=== PATIENT | female | born 1945 | race Caucasian/White ===

== ENCOUNTER 2020-06-14 11:45 | Emergency (ER) | payer MEDICARE, SELFPAY ==
[2020-06-14] VITALS (17 sets, daily range): BP systolic 119–148; BP diastolic 63–87; PULSE 66–90; RESP 13–20; TEMP 36.9; O2SAT 97–100
--- NOTE | ~2020-06-14 | XR_ITS ---
EXAMINATION: XR chest 2V DATE: 06/14/2020 12:28 INDICATION: Chest pain. TECHNIQUE: Frontal and lateral views of the chest were obtained. COMPARISON: Chest single view 12/19/2007 FINDINGS: Calcified right lung nodules and calcified right hilar lymph nodes are consistent with old granulomatous disease. No pleural effusion or pneumothorax. The heart size is normal. There are surgi sola clips in left axilla. IMPRESSION: 1. No acute cardiopulmonary disease. Reviewed, dictated and finalized at location A.
--- NOTE | 2020-06-14 11:55 | ECG_ITS ---
Measurements Intervals [place] Rate: 80 P: 37 KS: 143 QRS: -30 QRSD: 85 T: 19 QT: 377 QTc: 437 Interpretive Statements SINUS RHYTHM LOW QRS VOLTAGE IN PRECORDIAL LEADS BORDERLINE R WAVE PROGRESSION, ANTERIOR LEADS BORDERLINE T WAVE ABNORMALITY- INFERIOR LEADS BASELINE ARTIFACT- I, III, AVR BORDERLINE ECG Electronically Signed On 06-14-2020 13:29:31 CDT by Brian Valerio D.O.
--- NOTE | 2020-06-14 12:06 | ED.SYNCOPE ---
HPI - Syncope General Chief Complaint: Syncope Stated Complaint: i had the sx of heart attack a couple days ago Time Seen by Provider: 06/14/20 11:59 History of Present Illness HPI narrative: Patient presents to the ED feeling fine, but had an episode 4 days ago with chest pain, lightheadedness, syncope,. After she fainted she vomited. When she had the chest pain it radiated to both shoulders both arms and her jaw. Her hands went numb. She had chills and sweats when she woke up from the syncope. It was not witnessed. She has not been sick since. She had some heat exposure in the last couple days. Related Data Home Medications Medication Instructions Recorded Confirmed alendronate 70 mg PO WEEKLY 06/14/20 diphenhydramine HCl [Benadryl] 25 mg PO HS 06/14/20 magnesium 06/14/20 Allergies Allergy/AdvReac Type Severity Reaction Status Date / Time No Known Allergies Allergy Unknown Verified 06/14/20 11:53 Review of Systems Review of Systems: Narrative: CONSTITUTIONAL: Denies fever, chills, or sweats now. EYES: Denies visual changes, redness, or discharge. ENT: Denies rhinorrhea, congestion, sore throat, or otalgia. CARDIOVASCULAR: She had chest pain and syncope 4 days ago. RESPIRATORY: Denies cough or dyspnea. GASTROINTESTINAL: Denies abdominal pain, nausea, vomiting, or diarrhea now. GENITOURINARY: Denies dysuria or hematuria. SKIN: Denies rash or itching. MUSCULOSKELETAL: Denies back pain, joint pain, or myalgia. NEUROLOGIC: Denies headache, numbness, or weakness. PSYCHIATRIC: Denies anxiety or depression. All systems reviewed & are unremarkable except as noted in HPI and below PMFSH Past Medical History Medical History Benign tumor Breast cancer Diverticulosis Dyslipidemia Elevated LDL cholesterol level Osteopenia Recurrent urinary tract infection Surgical History Surgical History History of appendectomy History of eye surgery History of partial mastectomy History of tubal ligation Social History Social History Smoking status: Never smoker Second hand tobacco smoke exposure: No Alcohol intake: never Substance use: never Substance use type: does not use Gender identity (if verbalized by the patient): Female Exam Narrative: Exam Narrative: GENERAL: Well-appearing, well-nourished, and in no acute distress. Marta lady. HEAD: Normocephalic, atraumatic. EYES: PERRLA and EOMI. ENT: Nares clear, no rhinorrhea or epistaxis. Mucous membranes moist. NECK: Supple. CHEST: Clear to auscultation. No respiratory distress. HEART: Regular rate and rhythm. No murmur heard. Normal peripheral pulses. ABDOMEN: Soft, nontender, nondistended, normal active bowel sounds. EXTREMITIES: Normal range of motion. No edema. SKIN: Warm, dry, no rash. NEURO: No focal deficits. Alert and oriented x3. PSYCH: Normal mood and affect. Course Reevaluation(s) Reevaluation #1: Went in to tell the patient about all her good test results. Told her I was sorry that I could not figure out why she was sick last week. She is just relieved to know that there was no damage. Date: 06/14/20 Time: 13:31 Vital Signs Vital signs: Vital Signs Temperature 98.4 F 06/14/20 11:50 Pulse Rate 90 06/14/20 11:50 Respiratory Rate 16 06/14/20 11:50 Blood Pressure 148/63 H 06/14/20 11:50 Pulse Oximetry 99 06/14/20 11:50 Temperature 98.4 F 06/14/20 11:50 Pulse Rate 69 06/14/20 12:46 Respiratory Rate 18 06/14/20 12:46 Blood Pressure 119/67 06/14/20 12:46 Pulse Oximetry 100 06/14/20 12:46 MDM - Syncope Medical Records Attestation: I reviewed the patient's medical records. Lab Data Attestation: I reviewed the patient's lab results. Result diagrams: 06/14/20 12:02 06/14/20 12:57 Labs: Lab Results 06/14/20 072
[2020-06-14 12:19] LABS: Basophils Percent Auto 0.2 % (0.2-1.2); Eosinophils Absolute Auto 0.1 K/mm3 (0-0.3); Eosinophils Percent Auto 1.5 % (0-4.4); Hematocrit 39.5 % (37.0-47.0); Hemoglobin 12.2 g/dL (12.0-15.0); Immature Granulocyte Absolute 0.03 K/mm3 (0.00-0.031); Immature Granulocyte Percent A 0.5 % (0-0.5); Lymphocytes Absolute Auto 1.48 K/mm3 (0.9-3.2); Lymphocytes Percent Auto 22.9 % (18.3-44.2); Mean Corpuscular HGB Conc 30.9 g/dl (32-36); Mean Corpuscular Hemoglobin 27.5 pg (26-34); Mean Corpuscular Volume 89.2 fl (80-100); Mean Platelet Volume 10.6 fl (7.4-10.4); Monocytes Absolute Auto 0.5 K/mm3 (0.1-0.6); Monocytes Percent Auto 7.3 % (2.6-8.5); Neutrophils Absolute Auto 4.4 K/mm3 (1.3-6.7); Neutrophils Percent Auto 67.6 % (45.5-73.1); Platelet Count Result 267 k/mm3 (150-375); Red Blood Count 4.43 M/mm3 (4.2-5.4); White Blood Count 6.5 K/mm3 (4.5-10.0)
[2020-06-14 12:35] LABS: Prothrombin Time 12.9 Seconds (11.1-14.7)
[2020-06-14 12:36] LABS: Partial Thromboplastin Time 28.1 SECONDS (22.3-36.8)
[2020-06-14 13:19] LABS: Anion Gap 8.3 mmol/L (7-16); Blood Urea Nitrogen 20 mg/dL (7-17); Calcium 8.5 mg/dL (8.4-10.2); Carbon Dioxide 28 mmol/L (22-30); Chloride 104 mmol/L (98-107); Estimated CRCL calculation 41 ml/min; Estimated Glomerular Filt Rate 54; Glucose 97 mg/dL (65-105); Potassium 4.3 mmol/L (3.4-5.0); Sodium 136 mmol/L (137-145)
[2020-06-14 13:30] LABS: Troponin I < 0.012 ng/mL (0.000-0.034)
== END 2020-06-14 13:42 | disposition home or self-care (01) ==
LOC: ANHED 12:19
PROVIDERS: Emergency Provider Emergency Medicine; PCP Family Medicine
DX: T67.9XXA Effect of heat and light, unspecified, initial encounter (principal); R55 Syncope and collapse; R07.89 Other chest pain; Z85.3 Personal history of malignant neoplasm of breast; E78.5 Hyperlipidemia, unspecified; M85.80 Other specified disorders of bone density and structure, unspecified site; Z87.440 Personal history of urinary (tract) infections; Z90.10 Acquired absence of unspecified breast and nipple; R94.31 Abnormal electrocardiogram [ECG] [EKG]
CPT/HCPCS: 36415; 71046; 80048; 84484; 85025; 85610; 85730; 93005; 99284

== ENCOUNTER → 2020-11-26 07:46 | Outpatient (CLI) | payer MEDICARE, SELFPAY ==
--- NOTE | ~2020-11-26 | MM_ITS ---
EXAMINATION: MM diagnostic mami BI w bonnie HISTORY: Personal history of left breast cancer TECHNIQUE: Craniocaudal, mediolateral, and mediolateral oblique 3-D tomosynthesis images of the breas ts were performed and synthetic 2-D images were generated. CAD analysis was submitted and interpreted . COMPARISON: 11/10/2019, 11/07/2018, 11/06/2017 FINDINGS: There is stable architectural distortion in the upper outer quadrant of the left breast sit e of prior lumpectomy. Left axillary surgical clips are noted. There is no evidence of suspicious mas s, calcification, or architectural distortion in either breast to suggest malignancy. There has been no suspicious interval change. IMPRESSION: 1. No mammographic evidence of malignancy. 2. Recommend routine screening mammography in one year. BI-RADS Category 2: Benign finding(s). Reviewed, dictated and finalized at location A. 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
== END ==
PROVIDERS: PCP Physician Assistant; Visit Provider Internal Medicine Medical Oncology
DX: C50.411 Malignant neoplasm of upper-outer quadrant of right female breast (principal); Z17.0 Estrogen receptor positive status [ER+]
CPT/HCPCS: 77062; 77066; G0279

== ENCOUNTER → 2021-12-02 10:10 | Outpatient (CLI) | payer MEDICARE, SELFPAY ==
--- NOTE | ~2021-12-02 | DEXA_ITS ---
Bone Density Report Name: GEORGE CUBA Age: 76 Sex: Female Ethnicity: Anahi Date of : 1945 Indication: postmenopausal osteoporosis; height loss; Referring Provider: Yahaira, Kirill Proctor Study: Bone densitometry was performed. Exam Date: December 02, 2021 Accession number: [id number] Bone Density: Region BMD T-score Z-score Classification AP Spine (L1-L4) 0.764 -2.6 -0.1 Osteoporosis Femoral Neck (Left) 0.744 -0.9 1.2 Normal Total Hip (Left) 0.819 -1.0 0.9 Normal Femoral Neck (Right) 0.861 0.1 2.3 Normal Total Hip (Right) 0.861 -0.7 1.2 Normal Total Hip Mean 0.840 -0.9 1.1 Normal World Health Organization criteria for BMD impression classify patients as: Normal (T-score at or above -1.0), Osteopenia (T-score between -1.0 and -2.5), or Osteoporosis (T-score at or below -2.5). 10-year Fracture Risk: FRAX not reported because: Some T-score for Spine Total or Hip Total or Femoral Neck at or below -2.5 Previous Exams: Region Exam Age BMD T-score BMD Change BMD Change Date g/cm2 vs Baseline vs Previous AP Spine(L1-L4) 12/02/2021 76 0.764 -2.6 -0.011 -0.011 11/10/2019 73 0.775 -2.5 Total Hip(Left) 12/02/2021 76 0.819 -1.0 -0.009 -0.009 11/10/2019 73 0.828 -0.9 Total Hip(Right) 12/02/2021 76 0.861 -0.7 -0.021 -0.021 11/10/2019 73 0.881 -0.5 *Denotes significance at 95% confidence level, LSC for AP Spine = 0.022 g/cm2, LSC for Total Hip = 0.027 g/cm2 Clinical Information Provided by Patient: Has used the following medications: Boniva (i.e. ibandronate), Vitamin D, Calcium Patient maximum height was 63.3 Menopause Age: 49 Drinks caffeinated beverages Onset of menses at age 12 Number of children 1 Impression: The patient has osteoporosis, based on the Total Spine T-score. No significant bone loss was observed. Discussion: INCREASED RISK OF FRACTURE. BONE DENSITY IS UNDESIRABLY LOW AT ONE OR MORE SKELETAL SITES, CONSISTENT WITH POSTMENOPAUSAL OSTEOPOROSIS. This patient's lowest T-score meets the World Health Organization's (WHO) criteria for osteoporosis at one or more sites (T-score -2.5 or below). In untreated patients, the risk of osteoporotic fracture increases approximately two-fold for each 1.0 SD decrease in T-score. Low bone density is not the only risk factor for fracture; also consider factors such as patient's age, frailty or poor health, risk of falling, risk of inj
--- NOTE | ~2021-12-02 | MM_ITS ---
EXAMINATION: MM screening mami BI w bonnie HISTORY: Screening TECHNIQUE: Craniocaudal and mediolateral oblique 3-D tomosynthesis images were obtained and synthetic 2-D images were generated. CAD analysis was submitted and interpreted. COMPARISON: Comparison to multiple prior studies sequentially, with oldest reviewed study dated 05/2015. BREAST PARENCHYMAL COMPOSITION: Breast composed of scattered areas of fibroglandular density FINDINGS: The left breast is stable without new mass, calcifications or architectural distortion to s uggest malignancy. There are developing clustered indeterminate right breast calcifications in the up per outer quadrant. IMPRESSION: 1. Developing clustered calcifications of the right breast in the upper outer quadrant. 2. Magnification views are recommended. BI-RADS Category 0: Incomplete: Needs additional imaging evaluation. Reviewed, dictated and finalized at location A. 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 Developing clustered calcifications of the right breast in the upper outer q uadrant. 2. Magnification views are recommended. BI-RADS Category 0: Incomplete: Needs additional imaging evaluation.
== END ==
PROVIDERS: Visit Provider Internal Medicine Medical Oncology
DX: Z12.31 Encounter for screening mammogram for malignant neoplasm of breast (principal); Z78.0 Asymptomatic menopausal state; M81.0 Age-related osteoporosis without current pathological fracture; R92.8 Other abnormal and inconclusive findings on diagnostic imaging of breast
CPT/HCPCS: 77063; 77067; 77080

== ENCOUNTER 2021-12-16 12:26 | Outpatient (CLI) | payer MEDICARE, SELFPAY ==
--- NOTE | ~2021-12-16 | MM_ITS ---
EXAMINATION: MM diagnostic mami RT w bonnie HISTORY: Right breast calcifications on screening mammogram TECHNIQUE: Magnification views of the right breast were performed and synthetic 2-D images were gener ated. CAD analysis was submitted and interpreted. COMPARISON: 12/02/2021, 11/26/2020, 11/10/2019, 11/07/2018 FINDINGS: There are grouped coarse heterogeneous calcifications posterior third of the upper outer qu adrant breast at the 11:00 location 8 cm from the nipple. No associated mass or architectural distort ion are identified. IMPRESSION: 1. Indeterminate right breast calcifications. 2. Stereotactic biopsy is recommended. BI-RADS category 4, suspicious findings. Reviewed, dictated and finalized at location A. D WASTE FACILITY OPERATOR
== END 2021-12-16 12:27 | disposition home or self-care (01) ==
PROVIDERS: PCP Family Medicine; Visit Provider Internal Medicine Medical Oncology
DX: R92.1 Mammographic calcification found on diagnostic imaging of breast (principal); R92.8 Other abnormal and inconclusive findings on diagnostic imaging of breast
CPT/HCPCS: 77061; 77065; G0279

== ENCOUNTER 2021-12-27 11:30 | Outpatient (CLI) | payer MEDICARE, SELFPAY ==
--- NOTE | ~2021-12-27 | MM_ITS ---
MM stereotactic bx RT, MM post biopsy diagnostic RT, MM stereotactic specimen RT EXAMINATION: MM ster eotactic bx RT, MM post biopsy diagnostic RT, MM stereotactic specimen RT DATE: Zan Sellers M.D. INDICATION: Abnormal calcifications in the right breast. Stereotactic core biopsy is requested evalu ate for malignancy.] TECHNIQUE AND FINDINGS: The risks and potential benefits of the procedure were discussed with the patient and written informe d consent was obtained. The patient was placed in the prone position clustered at the table with the right breast in craniocaudal compression, and the area of interest was localized and targeted utiliz ing digital imaging with stereotaxis. After sterile preparation of the skin, 1% lidocaine was utilized for local anesthesia at the skin pun cture site and 1% lidocaine with epinephrine was utilized for deeper local anesthesia/is about the bi opsy site. A 9G [place] vacuum assisted biopsy needle was advanced to the level of the calcification o f interest from a cephalad approach utilizing stereotactic guidance and a total of 10 tissue core bio psies were obtained. A specimen radiograph demonstrates that the calcifications of interest are included within the tissue cores. A tissue marker clip was then placed at the biopsy site. The needle was removed and hemosta sis was achieved. The patient tolerated the procedure well and there is no evidence of significant i mmediate complication. The patient was given verbal as well as written postprocedural instructions p rior to discharge from the department. Tissue cores were submitted to surgical pathology for histolo gic analysis. A 2-view right unilateral digital mammogram was obtained post procedure and this demonstrates that th e tissue marker clip is in expected position. Tissue marker located in the upper outer quadrant of th e right breast posteriorly.] IMPRESSION: 1. Successful stereotactic biopsy of calcifications in the upper outer quadrant of the right breast, followed by tissue marker clip placement. Please refer to pathology report for histologic analysis. Reviewed, dictated and finalized at location A. GRATION PROJECT MANAGER IMPRESSION: 1. Successful stereotactic biopsy of calcifications in the upper outer quadran t of the right breast, followed by tissue marker clip placement. Please refer to pathology report for histologic analysis. IMPRESSION: 1. Successful stereotactic biopsy of calcifications in the upper outer quadran t of the right breast, followed by tissue marker clip placement. Please refer to pathology report for histologic analysis.
== END 2021-12-27 11:31 | disposition home or self-care (01) ==
PROVIDERS: PCP Family Medicine; Visit Provider Internal Medicine Medical Oncology
DX: R92.1 Mammographic calcification found on diagnostic imaging of breast (principal); R92.8 Other abnormal and inconclusive findings on diagnostic imaging of breast
CPT/HCPCS: 19081; 77065; 88305; A4648

== ENCOUNTER 2022-11-01 10:32 | Outpatient (CLI) | payer MEDICARE, SELFPAY ==
[2022-11-01 19:36] LABS: Alanine Aminotransferase 17 U/L (6-35); Albumin Level 4.1 g/dL (3.5-5.1); Alkaline Phosphatase 51 U/L (38-126); Anion Gap 5 mmol/L (8-16); Aspartate Amino Transferase 29 U/L (14-36); Bilirubin,Total 0.3 mg/dL (0.2-1.3); Blood Urea Nitrogen 35 mg/dL (7-17); Calcium 8.7 mg/dL (8.4-10.2); Carbon Dioxide 29 mmol/L (22-30); Chloride 103 mmol/L (98-107); Estimated Glomerular Filt Rate 54; Glucose 83 mg/dL (65-110); Potassium 4.4 mmol/L (3.4-5.0); Sodium 137 mmol/L (137-145)
== END 2022-11-01 10:33 | disposition home or self-care (01) ==
LOC: ANHGOSHLAB 10:39
PROVIDERS: PCP Family Medicine; Visit Provider Family Medicine
DX: E78.5 Hyperlipidemia, unspecified (principal); L50.8 Other urticaria; N18.30 Chronic kidney disease, stage 3 unspecified
CPT/HCPCS: 36415; 80053

== ENCOUNTER → 2022-12-25 10:25 | Outpatient (CLI) | payer MEDICARE, SELFPAY ==
--- NOTE | ~2022-12-25 | MM_ITS ---
EXAMINATION: MM diagnostic mami BI w bonnie HISTORY: History of left breast cancer TECHNIQUE: ML, MLO and CC 3-D tomosynthesis images of both breasts and left rotated lateral craniocau viral 3-D Tomosynthesis images were performed and synthetic 2-D images were generated. CAD analysis was submitted and interpreted. COMPARISON: 2diagnostic right mammogram 12/02/2021, 11/26/2020, 11/10/2019bilateralmammogram examinations BREAST PARENCHYMAL COMPOSITION: There are scattered areas of fibroglandular density. FINDINGS: Postoperative change from left partial mastectomy is again noted. There is a biopsy marker in the upper outer right breast; history of prior benign right breast biopsy. No interval suspicious mass or new architectural distortion or new retraction of either breast is ad dent. Occasional benign calcifications. IMPRESSION: 1. Status post left partial mastectomy for breast cancer. Benign findings 2. Routine annual mammographic screening is recommended BI-RADS Category 2: Benign finding(s). Reviewed, dictated and finalized at location A. E ORTHOPAEDIC
== END ==
PROVIDERS: PCP Family Medicine; Visit Provider Internal Medicine Medical Oncology
DX: C50.411 Malignant neoplasm of upper-outer quadrant of right female breast (principal); Z17.0 Estrogen receptor positive status [ER+]
CPT/HCPCS: 77062; 77066; G0279

== ENCOUNTER 2023-04-11 10:15 | Outpatient (CLI) | payer MEDICARE, SELFPAY ==
[2023-04-11 13:10] LABS: Basophils Percent Auto 0.2 % (0.2-1.2); Eosinophils Absolute Auto 0.1 K/mm3 (0-0.3); Eosinophils Percent Auto 1.7 % (0-4.4); Hematocrit 41.3 % (37.0-47.0); Immature Granulocyte Absolute 0.01 K/mm3 (0.00-0.031); Immature Granulocyte Percent A 0.2 % (0-0.5); Lymphocytes Absolute Auto 1.28 K/mm3 (0.9-3.2); Lymphocytes Percent Auto 27.8 % (18.3-44.2); Mean Corpuscular HGB Conc 29.1 g/dl (32-36); Mean Corpuscular Hemoglobin 26.9 pg (26-34); Mean Corpuscular Volume 92.6 fl (80-100); Mean Platelet Volume 10.9 fl (7.4-10.4); Monocytes Absolute Auto 0.5 K/mm3 (0.1-0.6); Monocytes Percent Auto 10.6 % (2.6-8.5); Neutrophils Absolute Auto 2.7 K/mm3 (1.3-6.7); Neutrophils Percent Auto 59.5 % (45.5-73.1); Platelet Count Result 207 k/mm3 (150-375); Red Blood Count 4.46 M/mm3 (4.2-5.4); Red Cell Distribution Width 13.3 % (11.5-14.5); White Blood Count 4.6 K/mm3 (4.5-10.0)
[2023-04-11 13:17] LABS: Alanine Aminotransferase 22 U/L (6-35); Albumin Level 4.2 g/dL (3.5-5.1); Alkaline Phosphatase 33 U/L (38-126); Anion Gap 3 mmol/L (8-16); Aspartate Amino Transferase 34 U/L (14-36); Bilirubin,Total 0.4 mg/dL (0.2-1.3); Blood Urea Nitrogen 31 mg/dL (7-17); Calcium 8.7 mg/dL (8.4-10.2); Carbon Dioxide 31 mmol/L (22-30); Chloride 106 mmol/L (98-107); Cholesterol 173 mg/dL (0-200); Estimated Glomerular Filt Rate > 60; Glucose 94 mg/dL (65-110); HDL Direct 70 mg/dL; Potassium 4.3 mmol/L (3.4-5.0); Sodium 140 mmol/L (137-145); Triglycerides 58 mg/dL (<150)
[2023-04-11 13:28] LABS: LDL Cholesterol Direct 84 mg/dL
[2023-04-11 13:49] LABS: Burr Cells 1+ (NORMAL); Platelet Estimate Adequate (Adequate); Schistocytes None Seen (NORMAL)
[2023-04-11 13:58] LABS: Vitamin D 25 Hydroxy 41.5 ng/mL
[2023-04-11 14:07] LABS: Vitamin B12 > 1000.0 pg/mL (239-931)
[2023-04-11 14:12] LABS: Thyroid Stimulating Hormone Reflex < 0.015 uIU/mL (0.465-4.68)
[2023-04-11 19:36] LABS: Free T4 Free Thyroxine Reflex 0.97 ng/dL (0.78-2.19)
[2023-04-11 20:15] LABS: Total Triiodothyronine (T3) 1.25 NG/ML (0.97-1.69)
== END 2023-04-11 10:16 | disposition home or self-care (01) ==
LOC: ANHGOSHLAB 10:16
PROVIDERS: PCP Family Medicine; Visit Provider Family Medicine
DX: N18.31 Chronic kidney disease, stage 3a (principal); E78.5 Hyperlipidemia, unspecified; E53.8 Deficiency of other specified B group vitamins; L50.8 Other urticaria; Z13.29 Encounter for screening for other suspected endocrine disorder; E55.9 Vitamin D deficiency, unspecified
CPT/HCPCS: 36415; 80053; 80061; 82306; 82607; 84439; 84443; 84480; 85025

== ENCOUNTER 2023-05-31 08:50 | Outpatient (CLI) | payer MEDICARE, SELFPAY | END 2023-05-31 08:51 | disposition home or self-care (01) | LOC: ANHGOSHLAB 08:51 | PROVIDERS: PCP Family Medicine; Visit Provider Family Medicine | DX: R79.89 Other specified abnormal findings of blood chemistry (principal); E78.5 Hyperlipidemia, unspecified | CPT/HCPCS: 36415; 84443 ==

== ENCOUNTER 2024-02-29 13:10 | Outpatient (CLI) | payer MEDICARE, SELFPAY ==
--- NOTE | ~2024-02-29 | DEXA_ITS ---
Bone Density Report Name: GEORGE CUBA Age: 78 Sex: Female Ethnicity: Anahi Date of : 1945 Indication: postmenopausal osteoporosis; height loss; end stage renal disease; Referring Provider: Yahaira, Kirill Proctor Study: Bone densitometry was performed. Exam Date: February 29, 2024 Accession number: [id number] Bone Density: Region BMD T-score Z-score Classification AP Spine (L1-L4) 0.775 -2.5 0.2 Osteoporosis Femoral Neck (Left) 0.769 -0.7 1.6 Normal Total Hip (Left) 0.815 -1.0 1.0 Normal Femoral Neck (Right) 0.837 -0.1 2.2 Normal Total Hip (Right) 0.841 -0.8 1.2 Normal Total Hip Mean 0.828 -0.9 1.1 Normal World Health Organization criteria for BMD impression classify patients as: Normal (T-score at or above -1.0), Osteopenia (T-score between -1.0 and -2.5), or Osteoporosis (T-score at or below -2.5). 10-year Fracture Risk: FRAX not reported because: Some T-score for Spine Total or Hip Total or Femoral Neck at or below -2.5 Previous Exams: Region Exam Age BMD T-score BMD Change BMD Change Date g/cm2 vs Baseline vs Previous AP Spine(L1-L4) 02/29/2024 78 0.775 -2.5 0.000 0.011 12/02/2021 76 0.764 -2.6 -0.011 -0.011 11/10/2019 73 0.775 -2.5 Total Hip(Left) 02/29/2024 78 0.815 -1.0 -0.013 -0.004 12/02/2021 76 0.819 -1.0 -0.009 -0.009 11/10/2019 73 0.828 -0.9 Total Hip(Right) 02/29/2024 78 0.841 -0.8 -0.040* -0.020 12/02/2021 76 0.861 -0.7 -0.021 -0.021 11/10/2019 73 0.881 -0.5 *Denotes significance at 95% confidence level, LSC for AP Spine = 0.022 g/cm2, LSC for Total Hip = 0.027 g/cm2 Clinical Information Provided by Patient: Has used the following medications: Vitamin D, Calcium Has the following medical conditions: End stage renal disease Patient maximum height was 63.3 Menopause Age: 49 Drinks caffeinated beverages Onset of menses at age 12 Number of children 1 Impression: The patient has osteoporosis, based on the Total Spine T-score. No significant bone loss was observed. Discussion: INCREASED RISK OF FRACTURE. BONE DENSITY IS UNDESIRABLY LOW AT ONE OR MORE SKELETAL SITES, CONSISTENT WITH POSTMENOPAUSAL OSTEOPOROSIS. This patient's lowest T-score meets the World Health Organization's (WHO) criteria for osteoporosis at one or more sites (T-score -2.5 or below). In untreated patients, the risk
--- NOTE | ~2024-02-29 | MM_ITS ---
EXAMINATION: MM screening mami BI w bonnie HISTORY: Screening TECHNIQUE: Craniocaudal and mediolateral oblique 3-D tomosynthesis images were obtained and synthetic 2-D images were generated. CAD analysis was submitted and interpreted. COMPARISON: Comparison to multiple prior studies sequentially, with oldest reviewed study dated 06/2021. BREAST PARENCHYMAL COMPOSITION: Not dense: There are scattered areas of fibroglandular density. FINDINGS: Stable postoperative changes in the upper outer quadrant of the left breast, consistent wit h lumpectomy for breast cancer with radiation therapy There is no evidence of suspicious mass, calcif ication, or architectural distortion to suggest malignancy in either breast. There has been no suspic ious interval change. IMPRESSION: 1. No mammographic evidence of malignancy. 2. Recommend routine screening mammography in one year. BI-RADS Category 2: Benign finding(s). Reviewed, dictated and finalized at location A.
== END 2024-02-29 13:11 ==
PROVIDERS: PCP Internal Medicine Medical Oncology; Visit Provider Internal Medicine Medical Oncology
DX: Z12.31 Encounter for screening mammogram for malignant neoplasm of breast (principal); M81.0 Age-related osteoporosis without current pathological fracture; Z78.0 Asymptomatic menopausal state; C50.411 Malignant neoplasm of upper-outer quadrant of right female breast; Z17.0 Estrogen receptor positive status [ER+]
CPT/HCPCS: 77063; 77067; 77080

== ENCOUNTER 2024-06-02 10:22 | Emergency (ER) | payer MEDICARE, SELFPAY ==
[2024-06-02 10:33] VITALS: BP 123/51; PULSE 72; RESP 18; TEMP 36.7; O2SAT 99
--- NOTE | 2024-06-02 10:43 | ED.WOUNDLAC ---
HPI - Wound/Laceration General Stated Complaint: Cat Bite Time Seen by Provider: 06/02/24 10:43 Source: patient Mode of arrival: ambulatory Limitations: no limitations History of Present Illness HPI narrative: 78-year-old female with complaint redness, swelling, pain to dorsal aspect right hand. States that she was bit by her cat last night. Afebrile. Tetanus up-to-date. No active bleeding. All Systems reviewed and negative except as noted. Related Data Home Medications Medication Instructions Recorded Confirmed diphenhydramine HCl 25 mg capsule 25 mg PO HS 06/14/20 06/02/24 (Benadryl) biotin 1 mg capsule 1 mg PO DAILY 11/25/20 06/02/24 calcium carbonate 600 mg-vitamin 1 cap PO DAILY 11/25/20 06/02/24 D3 12.5 mcg (500 unit) capsule (Calcium 600 with Vitamin D3) magnesium aspart,citrate,oxide 200 mg PO DAILY 10/06/21 06/02/24 (Triple Magnesium Complex) vitamin B complex (B 1 tablet PO DAILY 04/06/22 06/02/24 Complex-Vitamin B12 tablet) Allergies Allergy/AdvReac Type Severity Reaction Status Date / Time No Known Allergies Allergy Unknown Verified 06/02/24 10:50 Review of Systems Review of Systems: CONSTITUTIONAL: Denies fever, chills, or sweats. EYES: Denies visual changes, redness, or discharge. ENT: Denies rhinorrhea, congestion, sore throat, or otalgia. CARDIOVASCULAR: Denies chest pain, palpitations, or edema. RESPIRATORY: Denies cough or dyspnea. GASTROINTESTINAL: Denies abdominal pain, nausea, vomiting, or diarrhea. GENITOURINARY: Denies dysuria or hematuria. SKIN: Denies rash or itching. reports redness, swelling and warmth to dorsal aspect right hand. MUSCULOSKELETAL: Denies back pain, joint pain, or myalgia. NEUROLOGIC: Denies headache, numbness, or weakness. PSYCHIATRIC: Denies anxiety or depression. All other systems reviewed are negative, except as documented in HPI. 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 History of lumpectomy of left breast 2007 History of tubal ligation 1976 Family History Family History Grandparent Cerebrovascular accident Mother Cerebrovascular accident Father Lung cancer Social History Social History Smoking status: Never smoker Second hand tobacco smoke exposure: No Alcohol intake: never Substance use: never Substance use type: does not use Lack of Transportation: No Lack of Food: Never True Current Housing: I Have Housing Concerned About Future Housing: No Difficulty Paying Gas/Electric Bills: No Difficulty Paying for Meds: No Currently Unemployed: No Education: High School Diploma/GED Difficulty w/ Childcare or Family Care: No Living arrangements: with family Occupation/Education: retired Gender identity (if verbalized by the patient): Female Sexual Orientation (if Verbalized by the Patient): Straight or Heterosexual Agree to blood products: Yes Comments At time of signature, agree with nursing past medical, surgical, social and family history. There is no relevant family history pertinent to the presenting complaint. Exam Narrative: GENERAL: This is a well-nourished, well-developed patient, in no apparent distress. HEAD: normocephalic, atraumatic. EYES: PERRL. Sclera clear/white. Vision is grossly intact. EARS: External ears normal NOSE: External nose normal NECK: Neck supple, non-tender without lymphadenopathy, masses or thyromegaly. CARDIOVASCULAR: Regular rate and rhythm without murmurs, gallops, or rubs. RES
== END 2024-06-02 10:53 | disposition home or self-care (01) ==
PROVIDERS: Emergency Provider Nurse Practitioner Family; PCP Family Medicine
DX: S61.411A Laceration without foreign body of right hand, initial encounter (principal); L08.9 Local infection of the skin and subcutaneous tissue, unspecified; W55.01XA Bitten by cat, initial encounter; N18.30 Chronic kidney disease, stage 3 unspecified; E78.5 Hyperlipidemia, unspecified; M81.0 Age-related osteoporosis without current pathological fracture; Z85.3 Personal history of malignant neoplasm of breast
CPT/HCPCS: 99213; G0463

== ENCOUNTER 2024-08-17 09:17 | Emergency (ER) | payer MEDICARE, SELFPAY ==
[2024-08-17 09:37] VITALS: BP 128/56; PULSE 83; RESP 18; TEMP 36.7; O2SAT 100
--- NOTE | 2024-08-17 09:55 | ED.FEMALEGU ---
HPI - Female Genitourinary General Chief complaint: Urogenital-Female Stated complaint: UTI Time Seen by Provider: 08/17/24 09:50 Source: patient and RN notes reviewed Mode of arrival: ambulatory Limitations: no limitations History of Present Illness HPI Narrative: Patient presents today complaining of urinary frequency, decreased output, dysuria, chills, suprapubic pain since yesterday morning. She took a dose of azo yesterday. Last dose was last night. Reports history of frequent UTIs. Related Data Home Medications Medication Instructions Recorded Confirmed diphenhydramine HCl 25 mg capsule 25 mg PO HS 06/14/20 08/17/24 (Benadryl) biotin 1 mg capsule 1 mg PO DAILY 11/25/20 08/17/24 calcium carbonate 600 mg-vitamin 1 cap PO DAILY 11/25/20 08/17/24 D3 12.5 mcg (500 unit) capsule (Calcium 600 with Vitamin D3) magnesium aspart,citrate,oxide 200 mg PO DAILY 10/06/21 08/17/24 (Triple Magnesium Complex) vitamin B complex (B 1 tablet PO DAILY 04/06/22 08/17/24 Complex-Vitamin B12 tablet) Allergies Allergy/AdvReac Type Severity Reaction Status Date / Time No Known Allergies Allergy Unknown Verified 08/17/24 09:45 Review of Systems Review of Systems: CONSTITUTIONAL: Denies body aches, fever, or sweats.+ chills EYES: Denies visual changes, redness, or discharge. ENT: Denies rhinorrhea, congestion, sore throat, or otalgia. CARDIOVASCULAR: Denies chest pain, palpitations, or edema. RESPIRATORY: Denies cough or dyspnea. GASTROINTESTINAL: Denies abdominal pain, nausea, vomiting, or diarrhea. GENITOURINARY: + frequency, dysuria, suprapubic pain, decreased urine output SKIN: Denies rash, itching, or wounds. MUSCULOSKELETAL: Denies back pain, joint pain, or myalgia. NEUROLOGIC: Denies headache, numbness, tingling, or weakness. PSYCH: Denies depression or anxiety. 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 History of lumpectomy of left breast 2007 History of tubal ligation 1976 Family History Family History Grandparent Cerebrovascular accident Mother Cerebrovascular accident Father Lung cancer Social History Social History Smoking status: Never smoker Second hand tobacco smoke exposure: No Alcohol intake: never Substance use: never Substance use type: does not use Lack of Transportation: No Lack of Food: Never True Current Housing: I Have Housing Concerned About Future Housing: No Difficulty Paying Gas/Electric Bills: No Difficulty Paying for Meds: No Currently Unemployed: No Education: High School Diploma/GED Difficulty w/ Childcare or Family Care: No Living arrangements: with family Occupation/Education: retired Gender identity (if verbalized by the patient): Female Sexual Orientation (if Verbalized by the Patient): Straight or Heterosexual Agree to blood products: Yes Comments At time of signature, I have reviewed and agree with nursing past medical, surgical, social and family history unless otherwise noted. Please see nursing chart for further information. There is no relevant family history pertinent to the presenting complaint Exam Narrative: GENERAL: Well-appearing, well-nourished, and in no acute distress. HEAD: Normocephalic, atraumatic. EYES: EOMI. No redness or drainage. Conjunctivae normal. ENT: Mucous membranes pink and moist. NECK: Normal AROM. CHEST: No respiratory distress. Clear to auscultation. HEART: Regular rate and rhyth
[2024-08-18 14:30] LABS: EDUAAPPEAR Clear; EDUABILI Negative (Negative); EDUABLOOD Trace (Negative); EDUACOLOR1 Yellow; EDUAGLUCOSE Negative (Negative); EDUAKETONE Negative (Negative); EDUALEUKO 1+ (Negative); EDUANITRATE Negative (Negative); EDUAPROTEIN Negative (Negative); EDUASPGRAVITY 1.025; EDUAUROBILI 0.2
== END 2024-08-17 10:05 | disposition home or self-care (01) ==
PROVIDERS: Emergency Provider Nurse Practitioner; PCP Family Medicine
DX: N30.01 Acute cystitis with hematuria (principal); B96.20 Unspecified Escherichia coli [E. coli] as the cause of diseases classified elsewhere; N18.30 Chronic kidney disease, stage 3 unspecified; E78.5 Hyperlipidemia, unspecified; M81.0 Age-related osteoporosis without current pathological fracture; Z85.3 Personal history of malignant neoplasm of breast
CPT/HCPCS: 81003; 87077; 87086; 87088; 87186; 99213; G0463

== ENCOUNTER 2024-11-26 10:24 | Outpatient (CLI) | payer MEDICARE, SELFPAY ==
[2024-11-26 12:41] LABS: Basophils Percent Auto 0.2 % (0.2-1.2); Eosinophils Percent Auto 0.5 % (0-4.4); Hematocrit 40.1 % (37.0-47.0); Hemoglobin 11.6 g/dL (12.0-15.0); Immature Granulocyte Absolute 0.01 K/mm3 (0.00-0.031); Immature Granulocyte Percent A 0.2 % (0-0.5); Lymphocytes Absolute Auto 1.45 K/mm3 (0.9-3.2); Lymphocytes Percent Auto 26.3 % (18.3-44.2); Mean Corpuscular HGB Conc 28.9 g/dl (32-36); Mean Corpuscular Hemoglobin 26.6 pg (26-34); Mean Platelet Volume 11.2 fl (7.4-10.4); Monocytes Absolute Auto 0.6 K/mm3 (0.1-0.6); Neutrophils Absolute Auto 3.5 K/mm3 (1.3-6.7); Neutrophils Percent Auto 62.8 % (45.5-73.1); Nucleated Red Blood Cells Perc 0.4 % (0.0-0.2); Platelet Count Result 247 k/mm3 (150-375); Red Blood Count 4.36 M/mm3 (4.2-5.4); Red Cell Distribution Width 13.1 % (11.5-14.5); White Blood Count 5.5 K/mm3 (4.5-10.0)
[2024-11-26 13:04] LABS: Alanine Aminotransferase 21 U/L (6-35); Albumin Level 3.8 g/dL (3.5-5.1); Alkaline Phosphatase 46 U/L (38-126); Anion Gap 2 mmol/L (4-12); Aspartate Amino Transferase 33 U/L (14-36); Bilirubin,Total 0.5 mg/dL (0.2-1.3); Blood Urea Nitrogen 27 mg/dL (7-17); Calcium 9.1 mg/dL (8.4-10.2); Carbon Dioxide 28 mmol/L (22-30); Chloride 109 mmol/L (98-107); Cholesterol 156 mg/dL (0-200); Estimated Glomerular Filt Rate 60; Glucose 86 mg/dL (65-110); HDL Direct 50 mg/dL; Potassium 4.3 mmol/L (3.4-5.0); Sodium 139 mmol/L (137-145); Triglycerides 72 mg/dL (<150)
[2024-11-26 13:14] LABS: Hypochromasia 2+; Ovalocytes 1+; Platelet Estimate Adequate (Adequate); Schistocytes None Seen
[2024-11-26 13:16] LABS: LDL Cholesterol Direct 75 mg/dL
[2024-11-26 13:24] LABS: Vitamin D 25 Hydroxy 84.5 ng/mL
[2024-11-26 14:01] LABS: Vitamin B12 > 1000.0 pg/mL (239-931)
[2024-11-26 21:57] LABS: Hemoglobin A1C 5.6 % (<5.7)
== END 2024-11-26 10:25 | disposition home or self-care (01) ==
PROVIDERS: PCP Family Medicine; Visit Provider Family Medicine
DX: E78.5 Hyperlipidemia, unspecified (principal); Z79.899 Other long term (current) drug therapy; E55.9 Vitamin D deficiency, unspecified; R73.9 Hyperglycemia, unspecified; N18.30 Chronic kidney disease, stage 3 unspecified; E53.8 Deficiency of other specified B group vitamins
CPT/HCPCS: 36415; 80053; 80061; 82306; 82607; 83036; 84443; 85025

== ENCOUNTER 2025-02-27 12:48 | Emergency (ER) | payer MEDICARE, SELFPAY ==
--- NOTE | ~2025-02-27 | CT_ITS ---
Non-contrast Head CT History: Status post fall Technique: Axial non-contrast imaging of the brain was performed. Dose reduction technique was used on this scan by utilizing automated exposure control and iterative reconstruction technique. The dose -length product (DLP) was 605.33 mGy-cm. Findings: There is no evidence of intracranial hemorrhage, mass lesion, or acute infarct. Brain par enchyma appears normal. The ventricles and subarachnoid spaces are normal in size. The calvarium ap pears normal. The visualized paranasal sinuses and mastoid air cells are clear. Impression: No significant abnormality seen. Reviewed, dictated and finalized at location . Impression: No significant abnormality seen.
--- NOTE | ~2025-02-27 | CT_ITS ---
Noncontrast CT scan of the cervical spine Technique: Multiple contiguous axial [address] images of the cervical spine were obtained and rec onstructed in 2D sagittal and coronal planes on the acquisition scanner. Dose reduction technique was used on this scan by utilizing automated exposure control, adjustment of the mA and/or kV according to patient size. The dose-length product (DLP) was 113.20 mGy-cm. Clinical History: Pain Findings: No fractures or dislocations. There is moderate to advanced degenerative disc narrowing at C6-C7. There are scattered areas of facet joint degenerative change. There is mild bilateral neural foraminal narrowing at C6-C7. No prevertebral soft tissue swelling. Impression: No fracture or subluxation of the cervical spine. Degenerative change, as above. Reviewed, dictated and finalized at [facility]. Impression: No fracture or subluxation of the cervical spine. Degenerative change, as above.
[2025-02-27 12:50] VITALS: BP 142/58; PULSE 81; RESP 18; TEMP 35.7; O2SAT 99
--- OUTSIDE RECORDS SUMMARY | 2025-02-27 12:52 | XMS_ITS | Encounter Summary ---
Author Organization [employer] Address [address] [place] [address] Care Team Providers Care Police Chief Deputy Name Role Phone Derrek Adorno MD Primary Care Provider Encounter Details Date Type Department Care Team (Latest Contact Info) Description 06/10/2008 Outpatient Historical [facility] Javon Gallagher MD [address] [address] Malignant Neoplasm of Other Specified Sites of Female Breast (CMS/HCC) Social History Tobacco Use Types Packs/Day Years Used Date Smoking Tobacco: Never Assessed Comments Unknown Sex and Gender Information Value Date Recorded Sex Assigned at Not on file Legal Sex Female 5:30 AM TEXTILE SUPERVISOR Gender Identity Not on file Sexual Orientation Not on file documented as of this encounter Plan of Treatment Not on file documented as of this encounter Visit Diagnoses Diagnosis Malignant neoplasm of other specified sites of female breast documented in this encounter Care Teams Police Chief Deputy Relationship Specialty Start Date End Date Derrek Adorno MD [address] [place] [address] PCP - General 09/28/09 documented as of this encounter
--- OUTSIDE RECORDS SUMMARY | 2025-02-27 12:52 | XMS_ITS | Encounter Summary ---
Author Organization [facility] Address [address] [place] [address] Care Team Providers Care Inseam Leveler Name Role Phone Derrek Adorno MD Primary Care Provider [phone] Encounter Details Date Type Department Care Team (Latest Contact Info) Description 12/07/2007 Outpatient Historical [facility] Javon Gallagher MD [address] [address] Malignant Neoplasm of Breast (Female), Unspecified Site (CMS/HCC) Social History Tobacco Use Types Packs/Day Years Used Date Smoking Tobacco: Never Assessed Comments Unknown Sex and Gender Information Value Date Recorded Sex Assigned at Not on file Legal Sex Female 5:30 AM HYDROGRAPHICAL TECHNICAL OFFICER Gender Identity Not on file Sexual Orientation Not on file documented as of this encounter Plan of Treatment Not on file documented as of this encounter Visit Diagnoses Diagnosis Malignant neoplasm of breast (female), unspecified site documented in this encounter Care Teams Inseam Leveler Relationship Specialty Start Date End Date Derrek Adorno MD [address] [place] [id number] PCP - General 09/28/09 documented as of this encounter
--- OUTSIDE RECORDS SUMMARY | 2025-02-27 12:52 | XMS_ITS | Encounter Summary ---
Author Organization [facility] Address [address] [place] [address] Care Team Providers Care Seafood Specialist Name Role Phone Brian Booker MD Primary Care Provider [phone] Encounter Details Date Type Department Care Team (Latest Contact Info) Description 01/06/2009 Outpatient Historical [facility] Aris Diaz MD [address] [place] [id number] Malignant Neoplasm of Other Specified Sites of Female Breast (CMS/HCC) Social History Tobacco Use Types Packs/Day Years Used Date Smoking Tobacco: Never Assessed Comments Unknown Sex and Gender Information Value Date Recorded Sex Assigned at Not on file Legal Sex Female 5:30 AM BRAND SALES MANAGER Gender Identity Not on file Sexual Orientation Not on file documented as of this encounter Plan of Treatment Not on file documented as of this encounter Procedures Procedure Name Priority Date/Time Associated Diagnosis Comments XR RIBS UNILATERAL LEFT W PA CHEST Timed Study 01/06/2009 10:53 AM BRAND SALES MANAGER documented in this encounter Results * XR RIBS UNILATERAL LEFT W PA CHEST (01/06/2009 10:53 AM BRAND SALES MANAGER) Anatomical Region Laterality Modality Chest Other 01/06/2009 10:5 3 AM BRAND SALES MANAGER Narrative 01/06/2009 12:08 PM BRAND SALES MANAGER [address] [address] Admit Date: 01/06/2009 GEORGE CUBA Sex: F Admit Prov: ARIS DIAZ Date: 1945 Primary Care Prov: BRIAN BOOKER CMRN: [id number] [facility] [address] [place] [address] IMAGING SERVICES Ordering Prov: N/A Accession Number: [id number] Interpretation Examination: Chest with left ribs. 4 views Clinical History: Pain. Findings: Chest examination fails to demonstrate pleural, pulmonary, or mediastinal abnormality. Heart size is normal. There is no evidence of left rib fracture. Vascular catheter extends to the proximal superior vena cava. Impression: Normal chest with left ribs. . Dictated by: Kael GIRON 01/06/2009 12:07 Electronically signed by: Kael GIRON 01/06/2009 12:07 Procedure Note Armond Giron MD - 01/06/2009 [facility] [address] [place], [place] [address] Admit Date: 01/06/2009 GEORGE CUBA Sex: F Admit Prov: ARIS DIAZ Date: 1945 Primary Care Prov: BRIAN BOOKER CMRN: [id number] Room: [facility] [place] SSN: [address] [place] [address] IMAGING SERVICES Ordering Prov: N/A Interpretation Examination: Chest with left ribs. 4 views Clinical History: Pain. Findings: Chest examination fails to demonstrate pleural, pulmonary,or mediastinal abnormality. Heart size is normal. There is no evidenceof left rib fracture. Vascular catheter extends to the proximal superior venacava. Impression: Normal chest with left ribs. . Dictated by: Kael GIRON 01/06/2009 12:07 Electronically signed by: Kael GIRON 01/06/2009 12:07 Aris Diaz MD DIAGNOSTIC IMAGING ORDERABLE S Final Result documented in this encounter Visit Diagnoses Diagnosis Malignant neoplasm of other specified sites of female breast documented in this encounter Care Teams Seafood Specialist Relationship Specialty Start Date End Date Brian Booker MD [address] [place] [address] PCP - General 09/28/09 documented as of this encounter
--- OUTSIDE RECORDS SUMMARY | 2025-02-27 12:52 | XMS_ITS | Clinical Summary ---
Author Organization [facility] Address [address] [place] [address] Phone Care Team Providers Care Physician Liaison Name Role Phone Derrek Adorno MD Primary Care Provider [phone] Allergies No known active allergies Medications letrozole (FEMARA) 2.5 mg Oral Tab Take 1 Tab by mouth daily. Active Family History Medical History Relation Name Comments Lung Cancer Father Ovarian Cancer Maternal Aunt Cancer Maternal Cousin Relation Name Status Comments Father Maternal Aunt Maternal Cousin Social History Tobacco Use Types Packs/Day Years Used Date Smoking Tobacco: Never Alcohol Use Standard Drinks/Week Comments Yes 0 (1 standard drink = 0.6 oz pur e alcohol) social Comments Unknown Sex and Gender Information Value Date Recorded Sex Assigned at Not on file Legal Sex Female 5:30 AM PROJECT LEAD Gender Identity Not on file Sexual Orientation Not on file Occupation Industry Job Start Date Job End Date Not on file Not on file Not on file Not on file Last Filed Vital Signs Vital Sign Reading Time Taken Comments Blood Pressure 135/78 12/04/2012 10:14 AM PROJECT LEAD Pulse 73 12/04/2012 10:14 AM PROJECT LEAD Temperature 36.6 C (97.8 F) 12/04/2012 10:14 AM PROJECT LEAD Respiratory Rate 18 12/04/2012 10:14 AM PROJECT LEAD Oxygen Saturation 99% 12/04/2012 10:14 AM PROJECT LEAD Inhaled Oxygen Concentration - - Weight 62.1 kg (137 lb) 12/04/2012 10:16 AM PROJECT LEAD Height 167.6 cm (5' 6 ) 12/04/2012 10:16 AM PROJECT LEAD Body Mass Index 22.11 12/04/2012 10:16 AM PROJECT LEAD Plan of Treatment Health Maintenance Due Date Last Done Comments DTAP/TDAP/TD VACCINES (1 - Tdap) 1963 PNEUMOCOCCAL VACCINE 50+ YEARS (1 of 1 - PCV) 11/30/18 95 ZOSTER VACCINE (1 of 2) 1994 OSTEOPOROSIS SCREENING 2009 RSV VACCINE (60+ or ) (1 - 1-dose 75+ series) 2019 INFLUENZA VACCINE (#1) 2024 Insurance MEDICARE PART A AND B Care Teams Physician Liaison Relationship Specialty Start Date End Date Derrek Adorno MD [address] [place] [address] PCP - General 09/28/09
--- OUTSIDE RECORDS SUMMARY | 2025-02-27 12:52 | XMS_ITS | Encounter Summary ---
Author Organization [employer] Address [address] [place] [address] Care Team Providers Care Gravel Wheeler Name Role Phone Derrek Adorno MD Primary Care Provider [phone] Encounter Details Date Type Department Care Team (Latest Contact Info) Description 01/06/2009 Outpatient Historical [facility] Javon Gallagher MD [address] [address] Malignant Neoplasm of Other Specified Sites of Female Breast (CMS/HCC) Social History Tobacco Use Types Packs/Day Years Used Date Smoking Tobacco: Never Assessed Comments Unknown Sex and Gender Information Value Date Recorded Sex Assigned at Not on file Legal Sex Female 5:30 AM DIRECTOR DIGITAL STRATEGY Gender Identity Not on file Sexual Orientation Not on file documented as of this encounter Plan of Treatment Not on file documented as of this encounter Visit Diagnoses Diagnosis Malignant neoplasm of other specified sites of female breast documented in this encounter Care Teams Gravel Wheeler Relationship Specialty Start Date End Date Derrek Adorno MD [address] [place] [address] PCP - General 09/28/09 documented as of this encounter
--- OUTSIDE RECORDS SUMMARY | 2025-02-27 12:52 | XMS_ITS | Encounter Summary ---
Author Organization [employer] Address [address] [place] [address] Care Team Providers Care Water Main Pipe Layer Name Role Phone Derrek Adorno MD Primary Care Provider [phone] Encounter Details Date Type Department Care Team (Latest Contact Info) Description 11/05/2007 Outpatient Historical [facility] Javon Gallagher MD [address] [address] Malignant Neoplasm of Breast (Female), Unspecified Site (CMS/HCC) Social History Tobacco Use Types Packs/Day Years Used Date Smoking Tobacco: Never Assessed Comments Unknown Sex and Gender Information Value Date Recorded Sex Assigned at Not on file Legal Sex Female 5:30 AM HOME HEALTH MANAGER Gender Identity Not on file Sexual Orientation Not on file documented as of this encounter Plan of Treatment Not on file documented as of this encounter Visit Diagnoses Diagnosis Malignant neoplasm of breast (female), unspecified site documented in this encounter Care Teams Water Main Pipe Layer Relationship Specialty Start Date End Date Derrek Adorno MD [address] [place] [phone] PCP - General 09/28/09 documented as of this encounter
--- OUTSIDE RECORDS SUMMARY | 2025-02-27 12:52 | XMS_ITS | Clinical Summary ---
Author Organization [facility] Address [address] [facility] [place] [address] Care Team Providers Care Parking Lot Chauffeur Name Role Phone Roman Barnhart MD Primary Care Provider Source Comments [facility],non-owned Affiliates and Associated Physician Practices is amultiple site organization consisting of ambulatory clinics and hospital sitesin [place], [place], [place] and [place]. This disclosure is being madepursuant to the Care Everywhere program and may not contain all information available regarding this patient. Last updated 18.[facility] Allergies No known active allergies Medications * Be aware that medications may not be up to date on this document. Alwaysverify current medications with the patient. Medication Sig Dispensed Refills Start Date End Date Status DiphenhydrAMINE HCl (BENADRYL ALLERGY PO) Active Family History Medical History Relation Name Comments Cancer - Lung Father Relation Name Status Comments Father Mother Social History Tobacco Use Types Packs/Day Years Used Date Smoking Tobacco: Never Smokeless Tobacco: Never Alcohol Use Standard Drinks/Week Comments No 0 (1 standard drink = 0.6 oz pur e alcohol) Sex and Gender Information Value Date Recorded Sex Assigned at Not on file Gender Identity Not on file Sexual Orientation Not on file Last Filed Vital Signs Vital Sign Reading Time Taken Comments Blood Pressure 120/70 08/15/2018 9:07 AM CDT Pulse 68 08/15/2018 9:07 AM CDT Temperature 36.7 C (98.1 F) 08/15/2018 9:07 AM CDT Respiratory Rate 16 08/15/2018 9:07 AM CDT Oxygen Saturation 98% 08/15/2018 9:07 AM CDT Inhaled Oxygen Concentration - - Weight 65.3 kg (144 lb) 08/15/2018 9:07 AM CDT Height 160 cm (5' 3 ) 08/15/2018 9:07 AM CDT Body Mass Index 25.51 08/15/2018 9:07 AM CDT Plan of Treatment Health Maintenance Due Date Last Done Comments BONE DENSITY TESTING 1945 MEDICARE AWV 12 MONTHS 1945 DTAP/TDAP/TD VACCINES (1 - Tdap) 1963 PNEUMOCOCCAL VACCINE 50+ (1 of 1 - PCV) 1994 ZOSTER VACCINE (1 of 2) 1994 Respiratory Syncytial Virus (RSV) Vaccine Pt: or over 60 yrs (1 - 1-dose 75+ series) 2019 COVID-19 VACCINE ( - 2023-2 5 season) 2024 DEPRESSION SCREENING 11/19/2024 INFLUENZA VACCINE (Season Ended) 2025 HEPATITIS B VACCINE Aged Out No longe r eligible based on patient's age to complete this topic HIB VACCINE Aged Out No longer eligi ble based on patient's age to complete this topic HPV VACCINE Aged Out No longer eligi ble based on patient's age to complete this topic MENINGOCOCCAL (Group B) VACC INE SHARED DECISION-MAKING Aged Out No longer eligibl e based on patient's age to complete this topic MENINGOCOCCAL GROUPS A/C/Y/W VACCINE Aged Out No longer eligible b ased on patient's age to complete this topic Care Teams Parking Lot Chauffeur Relationship Specialty Start Date End Date Roman Barnhart MD [address] [place] [address] PCP - General 12/30/21
--- OUTSIDE RECORDS SUMMARY | 2025-02-27 12:52 | XMS_ITS | Encounter Summary ---
Author Organization [employer] Address [address] [place] [address] Care Team Providers Care Drywall Stripper Name Role Phone Derrek Adorno MD Primary Care Provider [phone] Encounter Details Date Type Department Care Team (Latest Contact Info) Description 10/04/2007 Outpatient Historical [facility] Conversion, History Javon Gallagher MD [address] [address] Malignant Neoplasm of Breast (Female), Unspecified Site (CMS/HCC) Social History Tobacco Use Types Packs/Day Years Used Date Smoking Tobacco: Never Assessed Comments Unknown Sex and Gender Information Value Date Recorded Sex Assigned at Not on file Legal Sex Female 5:30 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
--- OUTSIDE RECORDS SUMMARY | 2025-02-27 12:52 | XMS_ITS | Continuity of Care Document ---
Author Organization [facility] Address [address] [place] [address] [address] [place] [address] Phone Care Team Providers Care Ekg/Ecg Technician Name Role Phone Shanice iTmmons Unavailable Unavailable Advance Directives Directive Yes / No Effective Date File Name No Information Encounters Encounter Description Practice Location Reason(s) For Visit Diagnoses Date Provider Providers Copied on Encounter [facility], [address], [place], [place], [id number], [place] tel:[phone] [facility] No Information [address] Shanelle Prasad. [address] , [address], [place], [address], [place]. tel:[phone] Family History Family Member Type Diagnosis Age At Onset No Information Payers Payer name Insurance type Covered libertarian ID Authoriza tion(s) No Information Social History Type Description Quantity Date Captured Comments Sex Female Smoking Status No Information Chief Complaint And Reason For Visit No Information Reason For Referral Reason For Referral No Information History Of Present Illness Encounter Date Complaint History Of Prese nt Illness No Information Functional Status Date Functional Assessmen t No Information Instructions Date Instruction Additional Infor mation No Information Assessments Type Assessment Date No Information Patient Care Teams Name Effective Dates (start - stop) Status Members No Information
--- OUTSIDE RECORDS SUMMARY | 2025-02-27 12:53 | XMS_ITS | Clinical Summary ---
Author Organization [facility] Address [address] [facility] [address] [place] [address] Phone Care Team Providers Care Name Plate Stamping Machine Operator Name Role Phone Roman Barnhart MD Primary Care Provider Kirill Syed DO Unavailable [phone] Allergies No known active allergies Medications cholecalcifer ol (VITAMIN D-3) 2,000 unit capsule 05/04/2017Vitamin D3, po solid 2000 unit CapsulePOdailyPatient will get OTCContinue 017 Active diphenhydrAMI NE (BENADRYL) elixir 12.5 mg/5 mL Take by mouth every 6 (six) hours as needed for itching. Active magnesium gluconate 200 mg tablet Take 4 tablets (800 mg total) by mouth 2 (two) times a day Active biotin 5 mg tablet Take by mouth Active cyanocobalami n, vitamin B-12, 5,000 mcg capsule Take 5,000 mcg by mouth daily Active latanoprost (XALATAN) 0.005 % ophthalmic solution INSTILL 1 DROP INTO EACH EYE NIGHTLY AT BEDTIME 024 Active rosuvastatin (CRESTOR) 5 mg tablet Take 1 tablet (5 mg total) by mouth daily 025 Active Active Problems Problem Noted Date Diagnosed Date Protein-calorie malnutrition, unspecified severi ty 11/28/2024 Sensorineural hearing loss (SNHL) of both ears 1 12/10/2021 Malignant neoplasm of upper- outer quadrant of right breast in female, estrogen receptor positive 05/23/2018 Cancer Staging:Clinical stage from 09/21/2009:Stage IA(cT1c, cN0(sn), cM0, G2, ER: Positive, PA: Positive, HER2: Positive) - Signed by Kirill Syed DO on 06/01/2018 Immunizations Immunization Administration Dates Next Due Pfizer SARS-CoV-2 Monovalent Vaccination (12+ Yrs) PURPLE 03/21/2021,01/20/2021 Pneumococcal Polysaccharide PPV23 05/19/2016 Tdap 11/24/2019 ZOSTER Recombinant 05/19/2016 Surgical History Surgery Date Site/Laterality Comments APPENDECTOMY EYE SURGERY BREAST SURGERY Medical History Medical History Date Comments Seasonal allergies Breast cancer (HCC) Glaucoma Family History Medical History Relation Name Comments Cancer Father Relation Name Status Comments Father Social History Tobacco Use Types Packs/Day Years Used Date Smoking Tobacco: Never Smokeless Tobacco: Never AUDIT-C Answer Date Recorded Q1: How often do you have a drink containing alcohol? Never 11/28/2024 Q2: How many drinks containi ng alcohol do you have on a typical day when you are drinking? Patient does not drink Q3: How often do you have si x or more drinks on one occasion? Never 11/28/2024 Comments Unknown Sex and Gender Information Value Date Recorded Sex Assigned at Not on file Legal Sex Female 11:44 AM MEMBER CERTIFICATION MANAGER Gender Identity Not on file Sexual Orientation Not on file Obstetrics History Last Filed Vital Signs Vital Sign Reading Time Taken Comments Blood Pressure 113/63 11/28/2024 10:02 AM MEMBER CERTIFICATION MANAGER Pulse 84 11/28/2024 10:02 AM MEMBER CERTIFICATION MANAGER Temperature 36.6 C (97.8 F) 11/28/2024 10:02 AM MEMBER CERTIFICATION MANAGER Respiratory Rate 18 11/28/2024 10:0 2 AM MEMBER CERTIFICATION MANAGER Oxygen Saturation 97% 11/28/2024 10: 02 AM MEMBER CERTIFICATION MANAGER Inhaled Oxygen Concentration - - Weight 52.6 kg (115 lb 15.4 oz) 025 10:02 AM MEMBER CERTIFICATION MANAGER no shoes Height 157.5 cm (5' 2 ) 09/28/2023 9:09 AM MEMBER CERTIFICATION MANAGER Body Mass Index 21.21 09/28/2023 9:09 AM MEMBER CERTIFICATION MANAGER Plan of Treatment Health Maintenance Due Date Last Done Comments Depression Screening 1945 Fall Risk Assessment 1945 Osteoporosis Screening-Bone Density Scan 1945 Hepatitis B Screening 1962 Well Visit 65+ 2009 Zoster Vaccine (2 of 2) 07/14/2016 05/19/2016 Pneumococcal vaccine 65+ (2 of 2 - PCV) 05/19/2017 0 05/19/2016 Covid-19 Vaccine (3 - season) 07/20/202401/2021, 01/20/2021 Influenza Vaccine (#1) 2024 DTaP/Tdap/Td Vaccine (2 - Td or Tdap) 11/24/202904/2020 Insurance MEDICARE [employer] Care Teams Name Plate Stamping Machine Operator Relationship Specialty Start Date End Date Roman Barnhart MD PCP - General Family Practice 09/29/22 Kirill Syed DO [address] [place] [address] MEDICAL ONCOLOGY, [place] [id number] Medical Oncologist/Art Critic Hematology and Oncology 03/03/24
--- OUTSIDE RECORDS SUMMARY | 2025-02-27 12:53 | XMS_ITS | Referral Summary ---
Author Organization [facility] 8 [facility] Address 8 [facility] [address] [place] [address] Phone Care Team Providers Care Membership Manager Name Role Phone Roman Barnhart MD Primary Care Provider Kirill Syed DO Unavailable [phone] Allergies No known active allergies Medications cholecalcifer [...] 09/21/2009:Stage IA(cT1c, cN0(sn), cM0, G2, ER: Positive, AR: Positive, HER2: Positive) - Signed by Kirill Syed DO on 06/01/2018 Immunizations Immunization Administration Dates Next Due Pfizer SARS-CoV-2 Monovalent Vaccination (12+ Yrs) PURPLE 03/21/2021,01/20/2021 Pneumococcal Polysaccharide PPV23 05/19/2016 Tdap 11/24/2019 ZOSTER Recombinant 05/19/2016 Social History Tobacco Use Types Packs/Day Years [...] on file Legal Sex Female 11:44 AM FISHERIES ENFORCEMENT OFFICER Gender Identity Not on file Sexual Orientation Not on file Last Filed Vital Signs Vital Sign Reading Time Taken Comments Blood Pressure 113/63 11/28/2024 10:02 AM FISHERIES ENFORCEMENT OFFICER Pulse 84 11/28/2024 10:02 AM FISHERIES ENFORCEMENT OFFICER Temperature 36.6 C (97.8 F) 11/28/2024 10:02 AM FISHERIES ENFORCEMENT OFFICER Respiratory Rate 18 11/28/2024 10:0 2 AM FISHERIES ENFORCEMENT OFFICER Oxygen Saturation 97% 11/28/2024 10: 02 AM FISHERIES ENFORCEMENT OFFICER Inhaled Oxygen Concentration - - Weight 52.6 kg (115 lb 15.4 oz) 025 10:02 AM FISHERIES ENFORCEMENT OFFICER no shoes Height 157.5 cm (5' 2 ) 09/28/2023 9:09 AM FISHERIES ENFORCEMENT OFFICER Body Mass Index 21.21 09/28/2023 9:09 AM FISHERIES ENFORCEMENT OFFICER Plan of Treatment Not on file Insurance MEDICARE [facility] Care Teams Membership Manager Relationship Specialty Start Date End Date Roman Barnhart MD PCP - General Family Practice 09/29/22 [place] [address] [place] [address] MEDICAL ONCOLOGY, [facility] [address] [place] [address] Medical Oncologist/Chef German Hematology and Oncology 03/03/24
--- OUTSIDE RECORDS SUMMARY | 2025-02-27 13:05 | XMS_ITS | Continuity of Care Document ---
Author Organization [facility] Address [address] [place] [address] [address] [place] [address] Phone Care Team Providers Care Faro Dealer Name Role Phone Shanice Timmons Unavailable Unavailable Advance Directives Directive Yes / No Effective Date File Name No Information Encounters Encounter Description Practice Location Reason(s) For Visit Diagnoses Date Provider Providers Copied on Encounter Formerly [facility], [address], [place], [place], [id number], [place] tel:[phone] [facility] No Information 2[address] Shanelle Prasad. [address] , [address], [place], [address], [place]. tel:[phone] Family History Family Member Type Diagnosis Age At Onset No Information Payers Payer name Insurance type Covered democrat ID Authoriza tion(s) No Information Social History [...]
--- NOTE | 2025-02-27 13:34 | ED_ITS ---
HPI - General Adult General Chief complaint: Head Injury Stated complaint: Fall -head injury-No LOC Time Seen by Provider: 02/27/25 12:55 History of Present Illness HPI narrative: This is an 79-year-old female presenting after ground level fall. She was trying to get out of her car when she tripped and landed face 1st on the cement. She did not lose consciousness. She does not use blood thinners. She has an abrasion over her hairline and a frontal hematoma. She has no other complaints or injuries. Related Data Home Medications ?Medication ?Instructions ?Recorded ?Confirmed ?Last Taken ?Type diphenhydramine HCl 25 mg capsule 25 mg PO HS 06/14/20 11/26/24 Unknown History (Benadryl) biotin 1 mg capsule 1 mg PO DAILY 11/25/20 11/26/24 Unknown History calcium 600 mg (as 1 cap PO DAILY 11/25/20 11/26/24 Unknown History carbonate)-vitamin D3 12.5 mcg (500 unit) capsule (Calcium with Vit D3) magnesium aspart,citrate,oxide 200 mg PO DAILY 10/06/21 11/26/24 Unknown History (Triple Magnesium Complex) vitamin B complex (B 1 tablet PO DAILY 04/06/22 11/26/24 Unknown History Complex-Vitamin B12 tablet) latanoprost 0.005 % eye drops 1 drp EACH EYE QPM 11/26/24 11/26/24 Unknown History Allergies Allergy/AdvReac Type Severity Reaction Status Date / Time No Known Allergies Allergy Unknown Verified 02/27/25 12:49 PMFSH Past Medical History Medical History Chemotherapy-induced peripheral neuropathy (~2007) CKD (chronic kidney disease) stage 3, GFR 30-59 ml/min Chronic urticaria Osteoporosis Dyslipidemia Breast cancer Diverticulosis Surgical History Surgical History History of lumpectomy of left breast 2006 History of tubal ligation 1976 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 History of appendectomy 1957 Family History Family History Grandparent Cerebrovascular accident Mother Cerebrovascular accident Father Lung cancer Social History Social History Smoking status: Never smoker Second hand tobacco smoke exposure: No Alcohol intake: never Substance use: never Substance use type: does not use Lack of Transportation: No Lack of Food: Never True Current Housing: I Have Housing Concerned About Future Housing: No Difficulty Paying Gas/Electric Bills: No Difficulty Paying for Meds: No Currently Unemployed: No Education: High School Diploma/GED Difficulty w/ Childcare or Family Care: No Living arrangements: with family Occupation/Education: retired Gender identity (if verbalized by the patient): Female Sexual Orientation (if Verbalized by the Patient): Straight or Heterosexual Agree to blood products: Yes Exam Narrative: APPEARANCE: No apparent distress. Head: Abrasion over the hairline, forehead hematoma, small abrasion over the nose EYES: EOMI, NECK: Trachea midline RESPIRATORY: No increased rate of breathing CARDIOVASCULAR: RRR, ABDOMINAL: Non-distended MUSCULOSKELETAl: No obvious deformities NEURO: Alert. Cranial nerves 2-12 grossly intact. Sensation light touch, motor function cerebellar function intact for 4 extremities. Gait exam was normal. SKIN:: Warm, dry. Normal color PSYCHIATRIC: Normal affect Course Vital Signs Vital signs: Vital Signs Temperature 96.3 F L 02/27/25 12:50 Pulse Rate 81 02/27/25 12:50 Respiratory Rate 18 02/27/25 12:50 Blood Pressure 142/58 H 02/27/25 12:50 Pulse Oximetry 99 02/27/25 12:50 Temperature 96.3 F L 02/27/25 12:50 Pulse Rate 81 02/27/25 12:50 Respiratory Rate 18 02/27/25 12:50 Blood Pressure 142/58 H 02/27/25 12:50 Pulse Oximetry 99 02/27/25 12:50 Medical Decision Making [facility] Narrative Medical decision making narrative: -Course: 79-year-old female presenting after ground level fall. CT head and C- spine negative for acute traumatic injury. Neurologic exam is normal and she has a baseline mental status. Patient will be discharged follow-up with her primary care physician. Given return precautions for new or worsening symptoms. -DDX includes but is not limited to: Concussion, traumatic brain injury, intracranial hemorrhage Vital Signs Vital Signs: Vital Signs Temperature 96.3 F L 02/27/25 12:50 Pulse Rate 81 02/27/25 12:50 Respiratory Rate 18 02/27/25 12:50 Blood Pressure 142/58 H 02/27/25 12:50 Pulse Oximetry 99 02/27/25 12:50 Temperature 96.3 F L 02/27/25 12:50 Pulse Rate 81 02/27/25 12:50 Respiratory Rate 18 02/27/25 12:50 Blood Pressure 142/58 H 02/27/25 12:50 Pulse Oximetry 99 02/27/25 12:50 Discharge Plan Discharge Clinical Impression: Fall, Hematoma, Abrasion Patient Disposition: Home Condition: Stable Instructions: Antibiotic Form, Hematoma (ED) Additional Instructions: You were seen emergency department after a fall. Thankfully your CT head and C- spine were negative for serious injury. Please be careful when walking. Please follow-up your primary care physician for further management. Patient Language: Venezuelan Prescriptions: No Action latanoprost 0.005 % drops 1 drp EACH EYE QPM biotin 1 mg capsule 1 mg PO DAILY calcium carbonate-vitamin D3 [Calcium 600 with Vitamin D3] 600 mg(1,500mg) - 500 unit capsule 1 cap PO DAILY Triple Magnesium Complex 400 mg magnesium capsule 200 mg PO DAILY vitamin B complex [B Complex-Vitamin B12] Tablet 1 tablet PO DAILY diphenhydramine HCl [Benadryl] 25 mg Capsule 25 mg PO HS rosuvastatin 5 mg tablet 5 mg PO DAILY Qty: 30 5RF Follow-up/Referrals: Yana Barnhart MD [Primary Care Provider] -
[2025-02-27] MEDS: TETANUS,DIPHTHERIA,AC PERTUSSIS ADULT (0.5 ML) BOOSTRIX IM (14:32)
== END 2025-02-27 14:36 | disposition home or self-care (01) ==
PROVIDERS: Emergency Provider Emergency Medicine; PCP Family Medicine
DX: S00.83XA Contusion of other part of head, initial encounter (principal); S00.31XA Abrasion of nose, initial encounter; S00.01XA Abrasion of scalp, initial encounter; Z23 Encounter for immunization; N18.30 Chronic kidney disease, stage 3 unspecified; E78.5 Hyperlipidemia, unspecified; M81.0 Age-related osteoporosis without current pathological fracture; Z85.3 Personal history of malignant neoplasm of breast; Z92.21 Personal history of antineoplastic chemotherapy; W01.0XXA Fall on same level from slipping, tripping and stumbling without subsequent striking against object, initial encounter
CPT/HCPCS: 70450; 72125; 90471; 90715; 99284

== ENCOUNTER 2025-04-23 13:44 | Outpatient (CLI) | payer MEDICARE, SELFPAY ==
--- NOTE | ~2025-04-23 | MM_ITS ---
EXAMINATION: MM screening [facility] BI w bonnie HISTORY: Screening TECHNIQUE: Craniocaudal and mediolateral oblique 3-D tomosynthesis images were obtained and synthetic 2-D images were generated. CAD analysis was submitted and interpreted. COMPARISON: 02/29/2024 through 11/06/2017. BREAST PARENCHYMAL COMPOSITION: Not dense: There are scattered areas of fibroglandular density. FINDINGS: Stable postoperative changes in the upper outer quadrant of the left breast, consistent wit h lumpectomy for breast cancer with radiation therapy There is no evidence of suspicious mass, calcif ication, or architectural distortion to suggest malignancy in either breast. There has been no suspic ious interval change. IMPRESSION: 1. Benign mammogram. No mammographic evidence of malignancy. 2. Recommend routine screening mammography in one year. BI-RADS Category 2: Benign finding(s). Reviewed, dictated and finalized at location B.
== END 2025-04-23 13:45 | disposition home or self-care (01) ==
PROVIDERS: PCP Family Medicine; Visit Provider Internal Medicine Medical Oncology
DX: Z12.31 Encounter for screening mammogram for malignant neoplasm of breast (principal)
CPT/HCPCS: 77063; 77067

== ENCOUNTER 2025-05-26 09:51 | Outpatient (CLI) | payer MEDICARE, SELFPAY ==
--- OUTSIDE RECORDS SUMMARY | 2025-05-26 09:55 | XMS_ITS | Encounter Summary ---
Author Organization [facility] Address [address] [place] [address] Care Team Providers Care Fiberglass Laminator Name Role Phone Derrek Adorno MD Primary Care Provider [phone] Encounter Details Date Type Department Care Team (Latest Contact Info) Description 06/10/2008 Outpatient Historical [facility] Javon Gallagher MD [address] [address] Malignant Neoplasm of Other Specified Sites of Female Breast (CMS/HCC) Social History Tobacco Use Types Packs/Day Years Used Date Smoking Tobacco: Never Assessed Comments Unknown Sex and Gender Information Value Date Recorded Sex Assigned at Not on file Legal Sex Female 5:30 AM TAIL TRIMMER Gender Identity Not on file Sexual Orientation Not on file documented as of this encounter Plan of Treatment Not on file documented as of this encounter Visit Diagnoses Diagnosis Malignant neoplasm of other specified sites of female breast documented in this encounter Care Teams Fiberglass Laminator Relationship Specialty Start Date End Date Derrek Adorno MD [address] [place] [address] PCP - General 09/28/09 documented as of this encounter
--- OUTSIDE RECORDS SUMMARY | 2025-05-26 09:56 | XMS_ITS | Clinical Summary ---
Author Organization [facility] 8 [facility] Address 8 [facility] [address] [place] [address] Phone Care Team Providers Care Acid Pumper Name Role Phone Roman Barnhart MD Primary Care Provider Kirill Syed DO Unavailable [phone] Allergies No known active allergies Medications cholecalcifer [...] 09/21/2009:Stage IA(cT1c, cN0(sn), cM0, G2, ER: Positive, NE: Positive, HER2: Positive) - Signed by Kirill [...] on file Legal Sex Female 11:44 AM MACHINIST FIRST CLASS Gender Identity Not on file Sexual Orientation Not on file Obstetrics History Last Filed Vital Signs Vital Sign Reading Time Taken Comments Blood Pressure 113/63 11/28/2024 10:02 AM MACHINIST FIRST CLASS Pulse 84 11/28/2024 10:02 AM MACHINIST FIRST CLASS Temperature 36.6 C (97.8 F) 11/28/2024 10:02 AM MACHINIST FIRST CLASS Respiratory Rate 18 11/28/2024 10:0 2 AM MACHINIST FIRST CLASS Oxygen Saturation 97% 11/28/2024 10: 02 AM MACHINIST FIRST CLASS Inhaled Oxygen Concentration - - Weight 52.6 kg (115 lb 15.4 oz) 025 10:02 AM MACHINIST FIRST CLASS no shoes Height 157.5 cm (5' 2) 09/28/2023 9:09 AM MACHINIST FIRST CLASS Body Mass Index 21.21 09/28/2023 9:09 AM MACHINIST FIRST CLASS Plan of Treatment Health Maintenance Due Date Last Done Comments Depression Screening 1945 Fall Risk Assessment 1945 Osteoporosis Screening-Bone Density Scan 1945 Hepatitis B Screening 1962 Well Visit 65+ 2009 Zoster Vaccine (2 of 2) 07/14/2016 05/19/2016 Pneumococcal vaccine 65+ (2 of 2 - PCV) 05/19/2017 0 05/19/2016 Covid-19 Vaccine (3 - season) 07/20/202401/2021, 01/20/2021 Influenza Vaccine (Season Ended) 2025 DTaP/Tdap/Td Vaccine (2 - Td or Tdap) 11/24/202904/[address] [facility] Care Teams Acid Pumper Relationship Specialty Start Date End Date Roman Barnhart MD PCP - General Family Practice 09/29/22 Kirill Syed DO [address] [place] [address] MEDICAL ONCOLOGY, [place] [id number] Medical Oncologist/Poultry Hatchery Manager Hematology and Oncology 03/03/24
--- OUTSIDE RECORDS SUMMARY | 2025-05-26 09:56 | XMS_ITS | Continuity of Care Document ---
Author Organization [facility] Address [address] [place] [address] [address] [place] [address] Phone Care Team Providers Care Cognos Bi Developer Name Role Phone Shanice Timmons Unavailable Unavailable Advance Directives Directive Yes / No Effective Date File Name No Information Encounters Encounter Description Practice Location Reason(s) For Visit Diagnoses Date Provider Providers Copied on Encounter [facility], [address], [place], [place], [id number], [place] tel:[phone] [facility] No Information 2-[address] Shanelle Prasad. [address] , [address], [place], [address], [place]. tel:[phone] Family History Family Member Type Diagnosis Age [...]
--- OUTSIDE RECORDS SUMMARY | 2025-05-26 09:56 | XMS_ITS | Encounter Summary ---
Author Organization [facility] Address [address] [place] [address] Care Team Providers Care Rug Cleaning Supervisor Name Role Phone Derrek Adorno MD Primary Care Provider [phone] Encounter Details Date Type Department Care Team (Latest Contact Info) Description 10/04/2007 Outpatient Historical [facility] Conversion, History Javon Gallagher MD [address] [address] Malignant Neoplasm of Breast (Female), Unspecified Site (CMS/HCC) Social History Tobacco Use Types Packs/Day Years Used Date Smoking Tobacco: Never Assessed Comments Unknown Sex and Gender Information Value Date Recorded Sex Assigned at Not on file Legal Sex Female 5:30 AM FISCAL ACCOUNTANT Gender Identity Not on file Sexual Orientation Not on file documented as of this encounter Plan of Treatment Not on file documented as of this encounter Visit Diagnoses Diagnosis Malignant neoplasm of breast (female), unspecified site documented in this encounter Care Teams Rug Cleaning Supervisor Relationship Specialty Start Date End Date Derrek Adorno MD [address] [place] [address] PCP - General 09/28/09 documented as of this encounter
--- OUTSIDE RECORDS SUMMARY | 2025-05-26 09:56 | XMS_ITS | Clinical Summary ---
Author Organization [facility] Address [address] [facility] [place] [address] Care Team Providers Care Topology Teacher Name Role Phone Roman Barnhart MD Primary Care Provider Source Comments [facility],non-owned Affiliates and Associated Physician Practices is amultiple site organization consisting of ambulatory clinics and hospital sitesin [place], [place], [place] and [place]. This disclosure is being madepursuant to the Care Everywhere program and may not contain all information available regarding this patient. Last updated 18.[facility] Allergies No known active allergies Medications * Be aware that medications may not be up to date on this document. Alwaysverify current medications with the patient. DiphenhydrAMINE HCl (BENADRYL ALLERGY PO) Active Family History Medical History Relation Name Comments Cancer - Lung Father Relation Name Status Comments Father Mother Social History Tobacco Use Types Packs/Day Years Used Date Smoking Tobacco: Never Smokeless Tobacco: Never Alcohol Use Standard Drinks/Week Comments No 0 (1 standard drink = 0.6 oz pur e alcohol) Comments No Sex and Gender Information Value Date Recorded Sex Assigned at Not on file Legal Sex Female 7:45 PM CERTIFIED OPHTHALMIC ASSISTANT Gender Identity Not on file Sexual Orientation [...] 9:07 AM CDT Height 160 cm (5' 3) 08/15/2018 9:07 AM CDT Body Mass Index 25.51 08/15/2018 9:07 AM CDT Plan of Treatment Health Maintenance Due Date Last Done Comments BONE DENSITY TESTING 1945 DTAP/TDAP/TD VACCINES (1 - Tdap) 1963 [...] on patient's age to complete this topic Insurance MEDICARE MEDICARE MEDICARE [facility] MEDICARE SUPPLEMENT Care Teams Topology Teacher Relationship Specialty Start Date End Date Roman Barnhart MD [address] [place] [address] PCP - General 12/30/21
--- OUTSIDE RECORDS SUMMARY | 2025-05-26 09:56 | XMS_ITS | Encounter Summary ---
Author Organization [employer] Address [address] [place] [address] Care Team Providers Care Electro Mechanical Designer Name Role Phone Derrek Adorno MD Primary Care Provider [phone] Encounter Details Date Type Department Care Team (Latest Contact Info) Description 11/05/2007 Outpatient Historical [facility] Javon Gallagher MD [address] [address] Malignant Neoplasm of Breast (Female), Unspecified Site (CMS/HCC) Social History Tobacco Use Types Packs/Day Years Used Date Smoking Tobacco: Never Assessed Comments Unknown Sex and Gender Information Value Date Recorded Sex Assigned at Not on file Legal Sex Female 5:30 AM VANSTONE MACHINE OPERATOR Gender Identity Not on file Sexual Orientation Not on file documented as of this encounter Plan of Treatment Not on file documented as of this encounter Visit Diagnoses Diagnosis Malignant neoplasm of breast (female), unspecified site documented in this encounter Care Teams Electro Mechanical Designer Relationship Specialty Start Date End Date Derrek Adorno MD [address] [place] [address] PCP - General 09/28/09 documented as of this encounter
--- OUTSIDE RECORDS SUMMARY | 2025-05-26 09:56 | XMS_ITS | Encounter Summary ---
Author Organization [facility] Address [address] [place] [address] Care Team Providers Care Licensing Manager Name Role Phone Brian Booker MD Primary Care Provider [phone] Encounter Details Date Type Department Care Team (Latest Contact Info) Description 01/06/2009 Outpatient Historical [facility] Aris Diaz MD [address] [place] [address] Malignant Neoplasm of Other Specified Sites of Female Breast (CMS/HCC) Social History Tobacco Use Types Packs/Day Years Used Date Smoking Tobacco: Never Assessed Comments Unknown Sex and Gender Information Value Date Recorded Sex Assigned at Not on file Legal Sex Female 5:30 AM FISHING BOAT CAPTAIN Gender Identity Not on file Sexual Orientation Not on file documented as of this encounter Plan of Treatment Not on file documented as of this encounter Procedures Procedure Name Priority Date/Time Associated Diagnosis Comments XR RIBS UNILATERAL LEFT W PA CHEST Timed Study 01/06/2009 10:53 AM FISHING BOAT CAPTAIN documented in this encounter Results * XR RIBS UNILATERAL LEFT W PA CHEST (01/06/2009 10:53 AM FISHING BOAT CAPTAIN) Anatomical Region Laterality Modality Chest Other 01/06/2009 10:5 3 AM FISHING BOAT CAPTAIN Narrative 01/06/2009 12:08 PM FISHING BOAT CAPTAIN [address] [address] Admit Date: 01/06/2009 GEORGE CUBA Sex: F Admit Prov: ARIS DIAZ Date: 1945 Primary Care Prov: BRIAN BOOKER CMRN: [id number] [facility] [address] [place] [address] IMAGING SERVICES Ordering Prov: N/A Accession Number: [id number] Interpretation Examination: Chest with left ribs. 4 [...] - 01/06/2009 [facility] [address] [place], [place] [address] Admit Date: 01/06/2009 GEORGE CUBA Sex: F Admit Prov: ARIS DIAZ Date: 1945 Primary Care Prov: BRIAN BOOKER CMRN: [id number] Room: [facility] SSN: [address] [place] [address] IMAGING SERVICES Ordering Prov: N/A Interpretation Examination: [...] breast documented in this encounter Care Teams Licensing Manager Relationship Specialty Start Date End Date Brian Booker MD [address] [place] [address] PCP - General 09/28/09 documented as of this encounter
--- OUTSIDE RECORDS SUMMARY | 2025-05-26 09:56 | XMS_ITS | Referral Summary ---
Author Organization [facility] 8 [facility] Address 8 [facility] [address] [place] [address] Phone Care Team Providers Care Wire Brusher Name Role Phone Roman Barnhart MD Primary Care Provider Kirill Syed DO Unavailable [phone] Allergies No known active allergies Medications cholecalcifer [...] 09/21/2009:Stage IA(cT1c, cN0(sn), cM0, G2, ER: Positive, CA: Positive, HER2: Positive) - Signed by Kirill [...] on file Legal Sex Female 11:44 AM CANVAS WORKER Gender Identity Not on file Sexual Orientation Not on file Last Filed Vital Signs Vital Sign Reading Time Taken Comments Blood Pressure 113/63 11/28/2024 10:02 AM CANVAS WORKER Pulse 84 11/28/2024 10:02 AM CANVAS WORKER Temperature 36.6 C (97.8 F) 11/28/2024 10:02 AM CANVAS WORKER Respiratory Rate 18 11/28/2024 10:0 2 AM CANVAS WORKER Oxygen Saturation 97% 11/28/2024 10: 02 AM CANVAS WORKER Inhaled Oxygen Concentration - - Weight 52.6 kg (115 lb 15.4 oz) 025 10:02 AM CANVAS WORKER no shoes Height 157.5 cm (5' 2) 09/28/2023 9:09 AM CANVAS WORKER Body Mass Index 21.21 09/28/2023 9:09 AM CANVAS WORKER Plan of Treatment Not on file Insurance MEDICARE [facility] Care Teams Wire Brusher Relationship Specialty Start Date End Date Roman Barnhart MD PCP - General Family Practice 09/29/22 [place] [address] [place] [address] MEDICAL ONCOLOGY, [facility] [address] [place] [address] Medical Oncologist/Gi Physician Hematology and Oncology 03/03/24
--- OUTSIDE RECORDS SUMMARY | 2025-05-26 09:56 | XMS_ITS | Encounter Summary ---
Author Organization [facility] Address [address] [place] [address] Care Team Providers Care Editorial Cartoonist Name Role Phone Derrek Adorno MD Primary Care Provider [phone] Encounter Details Date Type Department Care Team (Latest Contact Info) Description 01/06/2009 Outpatient Historical [facility] Javon Gallagher MD [address] [address] Malignant Neoplasm of Other Specified Sites of Female Breast (CMS/HCC) Social History Tobacco Use Types Packs/Day Years Used Date Smoking Tobacco: Never Assessed Comments Unknown Sex and Gender Information Value Date Recorded Sex Assigned at Not on file Legal Sex Female 5:30 AM TSO Gender Identity Not on file Sexual Orientation Not on file documented as of this encounter Plan of Treatment Not on file documented as of this encounter Visit Diagnoses Diagnosis Malignant neoplasm of other specified sites of female breast documented in this encounter Care Teams Editorial Cartoonist Relationship Specialty Start Date End Date Derrek Adorno MD [address] [place] [id number] PCP - General 09/28/09 documented as of this encounter
--- OUTSIDE RECORDS SUMMARY | 2025-05-26 09:56 | XMS_ITS | Encounter Summary ---
Author Organization [facility] Address [address] [place] [address] Care Team Providers Care Feller Machine Operator Name Role Phone Derrek Adorno MD Primary Care Provider [phone] Encounter Details Date Type Department Care Team (Latest Contact Info) Description 12/07/2007 Outpatient Historical [facility] Javon Gallagher MD [address] [address] Malignant Neoplasm of Breast (Female), Unspecified Site (CMS/HCC) Social History Tobacco Use Types Packs/Day Years Used Date Smoking Tobacco: Never Assessed Comments Unknown Sex and Gender Information Value Date Recorded Sex Assigned at Not on file Legal Sex Female 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
--- OUTSIDE RECORDS SUMMARY | 2025-05-26 09:56 | XMS_ITS | Clinical Summary ---
Author Organization [facility] Address [address] [place] [address] Phone Care Team Providers Care Manufacturing Scheduler Name Role Phone Derrek Adorno MD Primary Care Provider [phone] Allergies No known active allergies Medications letrozole [...] on file Legal Sex Female 5:30 AM ANALYTICS LEAD Gender Identity Not on file Sexual Orientation Not on file Occupation Industry Job Start Date Job End Date Not on file Not on file Not on file Not on file Last Filed Vital Signs Vital Sign Reading Time Taken Comments Blood Pressure 135/78 12/04/2012 10:14 AM ANALYTICS LEAD Pulse 73 12/04/2012 10:14 AM ANALYTICS LEAD Temperature 36.6 C (97.8 F) 12/04/2012 10:14 AM ANALYTICS LEAD Respiratory Rate 18 12/04/2012 10:14 AM ANALYTICS LEAD Oxygen Saturation 99% 12/04/2012 10:14 AM ANALYTICS LEAD Inhaled Oxygen Concentration - - Weight 62.1 kg (137 lb) 12/04/2012 10:16 AM ANALYTICS LEAD Height 167.6 cm (5' 6) 12/04/2012 10:16 AM ANALYTICS LEAD Body Mass Index 22.11 12/04/2012 10:16 AM ANALYTICS LEAD Plan of Treatment Health Maintenance Due Date Last Done Comments DTAP/TDAP/TD VACCINES (1 - Tdap) 1963 PNEUMOCOCCAL VACCINE 50+ YEARS (1 of 1 - PCV) 11/30/18 95 ZOSTER VACCINE (1 of 2) 1994 OSTEOPOROSIS SCREENING 2009 RSV VACCINE (60+ or ) (1 - 1-dose 75+ series) 2019 INFLUENZA VACCINE (#1) 2025 Insurance MEDICARE PART A AND B Care Teams Manufacturing Scheduler Relationship Specialty Start Date End Date Derrek Adorno MD [address] [place] [address] PCP - General 09/28/09
[2025-05-26 12:28] LABS: Hematocrit 40.7 % (37.0-47.0); Hemoglobin 11.6 g/dL (12.0-15.0); Immature Granulocyte Percent A 0.4 % (0-0.5); Lymphocytes Absolute Auto 1.20 K/mm3 (0.9-3.2); Mean Corpuscular HGB Conc 28.5 g/dl (32-36); Mean Corpuscular Hemoglobin 26.5 pg (26-34); Mean Corpuscular Volume 92.9 fl (80-100); Nucleated Red Blood Cells Absolute Auto 0.000 K/mm3 (0.0-0.012); Nucleated Red Blood Cells Perc 0.0 % (0.0-0.2); Platelet Count Result 205 k/mm3 (150-375); Red Blood Count 4.38 M/mm3 (4.2-5.4); White Blood Count 5.1 K/mm3 (4.5-10.0)
[2025-05-26 12:35] LABS: Alanine Aminotransferase 19 U/L (6-35); Albumin Level 4.0 g/dL (3.5-5.1); Alkaline Phosphatase 42 U/L (38-126); Anion Gap 6 mmol/L (4-12); Aspartate Amino Transferase 38 U/L (14-36); Bilirubin,Total 0.4 mg/dL (0.2-1.3); Blood Urea Nitrogen 22 mg/dL (7-17); Calcium 8.9 mg/dL (8.4-10.2); Carbon Dioxide 27 mmol/L (22-30); Chloride 107 mmol/L (98-107); Estimated Glomerular Filt Rate 53; Glucose 87 mg/dL (65-110); Potassium 4.2 mmol/L (3.4-5.0); Sodium 140 mmol/L (137-145); Total Protein 6.9 g/dL (6.3-8.2)
[2025-05-26 13:13] LABS: Burr Cells 1+; Hypochromasia 1+
== END 2025-05-26 09:52 | disposition home or self-care (01) ==
PROVIDERS: PCP Family Medicine; Visit Provider Family Medicine
DX: N18.30 Chronic kidney disease, stage 3 unspecified (principal); Z00.00 Encounter for general adult medical examination without abnormal findings; E78.5 Hyperlipidemia, unspecified; Z79.899 Other long term (current) drug therapy
CPT/HCPCS: 36415; 80053; 85025